=== PATIENT | female | born 1965 | race Caucasian/White ===

== ENCOUNTER 2016-09-30 07:07 | Emergency (ER) | payer BC ==
--- NOTE | 2016-09-30 07:34 | UC ---
General HPI - HPI Summary HPI Summary: The patient comes in today for: 1. "My face is going to explode." Onset: 3 days ago. Palliative/provocative: "uncomfortable with pressure" Quality: Pressure sensation. Region: Left cheek. Severity: 7/10 for uncomfortable sensation, but pain is 3/10 Time: Constant Associated symptoms: Event: "I felt a little something" and brushed it away. She had a "pin prick sensation." It got worse since then--swelling, tender, and hard. Treatment: Triple antibiotic ointment. "udder cream." Fevers: None. Discharge: "very little discharge, blood and clear fluid." LMP: last . * - History of Current Complaint Chief Complaint: Frida Stated Complaint: FACIAL BITE/SWELLING Time Seen by Provider: 09/30/16 07:26 Hx Obtained From: Patient - Allergy/Home Medications Allergies/Adverse Reactions: Allergies Allergy/AdvReac Type Severity Reaction Status Date / Time Amoxicillin [From Augmentin] Allergy Nausea Verified 09/30/16 07:22 Cephalexin [From Keflex] Allergy GI Upset Verified 09/30/16 07:22 Clavulanic Acid Allergy Nausea Verified 09/30/16 07:22 [From Augmentin] Home Medications: Home Medications Sylvia Tabs 1 tab PO DAILY 09/30/16 [History Confirmed 09/30/16] Ranitidine HCl 75 mg PO BID PRN 09/30/16 [History Confirmed 09/30/16] PMH/Surg Hx/FS Hx/Imm Hx Previously Healthy: Yes Endocrine History Of: Denies: Diabetes, Thyroid Disease, Hyperthyroidism, Hypothyroidism, Dyslipidemia Cardiovascular History Of: Denies: Cardiac Disorders, Hypertension, Pacemaker/ICD, Myocardial Infarction , Congestive Heart Failure, Atrial Fibrillation, Deep Vein Thrombosis, Bleeding Disorders Respiratory History Of: Reports: Asthma - allergy induced. Advair for seasonal wheezing. Denies: COPD, Bronchitis, Pneumonia, Pulmonary Embolism GI/ History Of: Denies: Gastroesophageal Reflux, Ulcer, Gastrointestinal Bleed, Gall Bladder Disease, Kidney Stones, Diverticulitis, Renal Disease, Urosepsis Neurological History Of: Denies: TIA, CVA, Dementia, Seizures, Migraine Psychological History Of: Denies: Anxiety, Depression, Bipolar Disorder, Schizophrenia, Post Traumatic Stress Disorder Cancer History Of: Denies: Lung Cancer, Colorectal Cancer, Breast Cancer, Prostate Cancer, Cervical Cancer Other History Of: Negative For: HIV, Hepatitis B, Hepatitis C, Anticoagulant Therapy - Surgical History Surgical History: Yes Surgery Procedure, Year, and Place: right knee - Family History Known Family History: Positive: Cardiac Disease Negative: Hypertension - Social History Occupation: Employed Full-time Alcohol Use: Occasionally Substance Use Type: None Smoking Status (MU): Never Smoked Tobacco Review of Systems Constitutional: Negative Skin: Rash Eyes: Negative ENT: Negative Respiratory: Negative Cardiovascular: Negative Gastrointestinal: Negative All Other Systems Reviewed And Are Negative: Yes Physical Exam Triage Information Reviewed: Yes Appearance: Well-Appearing, No Pain Distress, Well-Nourished Vital Signs: Initial Vital Signs Temp 99.1 F 09/30/16 07:14 Pulse 106 09/30/16 07:14 Resp 24 09/30/16 07:14 Pulse Ox 98 09/30/16 07:14 Patient refuses BP check due to an upcoming nerve studies. Vital Signs Reviewed: Yes Eyes: Positive: Conjunctiva Clear. Negative: Discharge ENT: Positive: Hearing grossly normal. Negative: Pharyngeal erythema, Nasal congestion, Nasal drainage, TM bulging, TM dull, TM red, Tonsillar swelling, Tonsillar exudate Dental: Negative: Gross Decay/Caries @, Dental Fracture @ Neck: Positive: Supple, Nontender, No Lymphadenopathy. Negative: Nuchal Rigidity Respiratory: Positive: Lungs clear, No respiratory distress, No accessory muscle use. Negative: Crackles, Wheezing Cardiovascular: Positive: RRR, No Murmur Abdomen Description: Positive: Nontender, No Organomegaly, Soft. Negative: Distended, Guarding Musculoskeletal: Positive: Strength Intact, ROM Intact Neurological: Positive: Alert, Muscle Tone Normal Psychological: Negative: Age Appropriate Behavior, Consolable Skin: Positive: Other - Left cheek: There is swelling. There is mild tenderness. It is difficult to determine if she has erythema as she has increased makeup on. There is no obvious fluctuance. The size of the induration is about 2 cm. Diagnostics - Laboratory Diagnostic Studies Completed/Ordered: Ultrasound of the left cheek: No cavity, but increased vascularity. Course/Dx - Differential Dx - Multi-Symptom Provider Diagnoses: Facial early abscess/cellulitis, left cheek. Discharge - Discharge Plan Condition: Stable Disposition: HOME Patient Education Materials: Cellulitis (ED), Abscess (ED) Forms: *Work Release Referrals: No Primary Care Phys,NOPCP [Primary Care Provider] - Rafal Avitia MD [Medical Doctor] - 2 Days (Please contact DR. Avitia's office today for an appointment in 2-3 days. ) Additional Instructions: Apply warm compresses to the affected cheek for 20 minutes 4-5 times a day.
--- NOTE | 2016-09-30 08:59 | RAD ---
INDICATION: Left facial swelling COMPARISON: None TECHNIQUE: Transverse and longitudinal scans of the left maxillary were performed utilizing grayscale and color Doppler imaging. FINDINGS: There is diffuse edema and mild hyperemia about the left cheek but no localized fluid collection to suggest abscess formation. IMPRESSION: NO EVIDENCE OF LOCALIZED ABSCESS.
== END 2016-09-30 09:05 | disposition home or self-care (01) ==
LOC: UCCORT 07:07
DX: L02.01 Cutaneous abscess of face (principal); L03.211 Cellulitis of face; Z88.1 Allergy status to other antibiotic agents; J45.909 Unspecified asthma, uncomplicated
CPT/HCPCS: 76536; 99212; G0463

== ENCOUNTER 2018-11-28 20:45 | Emergency (ER) | payer BC ==
--- NOTE | 2018-11-28 21:38 | UC ---
Complaint Female HPI - HPI Summary HPI Summary: 53-year-old female presents with onset of dysuria, frequency, urgency, hematuria today. Denies fever, chills, abdominal pain, back or flank pain, nausea, vomiting, or vaginal discharge. - History Of Current Complaint Chief Complaint: UCGU Stated Complaint: URINARY Time Seen by Provider: 11/28/18 21:19 Hx Obtained From: Patient Hx Last Menstrual Period: 09/26/16 Pain Intensity: 4 - Allergies/Home Medications Allergies/Adverse Reactions: Allergies Allergy/AdvReac Type Severity Reaction Status Date / Time amoxicillin [From Augmentin] AdvReac Nausea Verified 11/28/18 21:17 cephalexin [From Keflex] AdvReac GI Upset Verified 11/28/18 21:17 clavulanic acid AdvReac Nausea Verified 11/28/18 21:17 [From Augmentin] Home Medications: Home Medications Astelin 2 inh BEDTIME 11/28/18 [History Confirmed 11/28/18] PMH/Surg Hx/FS Hx/Imm Hx Previously Healthy: Yes GI/ History: Gastroesophageal Reflux Other History Of: Negative For: HIV, Hepatitis B, Hepatitis C, Anticoagulant Therapy - Surgical History Surgical History: Yes Surgery Procedure, Year, and Place: right knee - Family History Known Family History: Positive: Cardiac Disease Negative: Hypertension - Social History Occupation: Employed Full-time Lives: Alone Alcohol Use: Occasionally Substance Use Type: None Smoking Status (MU): Never Smoked Tobacco Review of Systems All Other Systems Reviewed And Are Negative: Yes Constitutional: Negative: Fever, Chills Respiratory: Positive: Negative Cardiovascular: Positive: Negative Gastrointestinal: Negative: Abdominal Pain, Vomiting, Nausea Genitourinary: Positive: Dysuria, Hematuria, Frequency, Urgency. Negative: Vaginal/Penile Itching, Vaginal/Penile Discharge Musculoskeletal: Positive: Negative Neurological: Positive: Negative Is Patient Immunocompromised?: No Physical Exam - Summary Physical Exam Summary: GENERAL APPEARANCE: Well developed, well nourished, alert and cooperative, and appears to be in no acute distress. CARDIAC: Normal S1 and S2. No S3, S4 or murmurs. Rhythm is regular. There is no peripheral edema, cyanosis or pallor. Extremities are warm and well perfused. Capillary refill is less than 2 seconds. Peripheral pulses intact. LUNGS: Clear to auscultation without rales, rhonchi, wheezing or diminished breath sounds. ABDOMEN: Positive bowel sounds. Soft, nondistended, nontender. No guarding or rebound. No masses or hepatosplenomegally. No CVA tenderness. MUSKULOSKELETAL: ROM intact to all extremities. No joint erythema or tenderness. Normal muscular development. Normal gait. SKIN: Skin normal color, texture and turgor with no lesions or eruptions. Triage Information Reviewed: Yes Vital Signs: Initial Vital Signs Temp 98.7 F 11/28/18 21:12 Pulse 98 11/28/18 21:12 Resp 18 11/28/18 21:12 Pulse Ox 100 11/28/18 21:12 Vital Signs Reviewed: Yes Complaint Female Dx - Course Course Of Treatment: 53-year-old female presents with onset of dysuria, frequency, urgency, hematuria today. Denies fever, chills, abdominal pain, back or flank pain, nausea, vomiting, or vaginal discharge. Afebrile. Vital signs stable. Exam was overall unremarkable. A [id number] urinalysis was not able to be obtained due to the gross hematuria. Urine culture is pending. Will treat empirically for UTI with Bactrim DS 1 tablet twice a day 5 days as well as bright Pyridium 100 mg 3 times a day 2 days for comfort. First doses of these medications were given in the clinic. Patient is to follow-up with her primary care provider in 3-5 days if symptoms do not improve. Anticipatory guidance and warning symptoms were reviewed with the patient. Verbalizes understanding and agrees with plan of care. - Differential Dx/Diagnosis Differential Diagnosis/HQI/PQRI: Ureteral Stone, Urinary Tract Infection Provider Diagnosis: UTI (urinary tract infection) Discharge - Sign-Out/Discharge Documenting (check all that apply): Patient Departure All imaging exams completed and their final reports reviewed: No Studies - Discharge Plan Condition: Stable Disposition: HOME Prescriptions: Phenazopyridine TAB* [Pyridium 100 mg TAB*] 100 mg PO TID #4 tab Sulfamethox/Trimethoprim DS* [Bactrim DS 800/160 TAB*] 1 tab PO BID #8 tab Patient Education Materials: Urinary Tract Infection in Women (ED) Referrals: No Primary Care Phys,NOPCP [Primary Care Provider] - Additional Instructions: We were unable to perform a urine test in the clinic today because of the blood in the urine but your symptoms are suggestive of a urinary tract infection. We will start you on an antibiotic to treat for the infection. We will send a urine culture today to see what bacteria grow out and make sure the antibiotic you were prescribed is appropriate to treat the infection. It will take up to 48 -72 hours to get these results. We will contact you if there is any change in your treatment plan. Start Bactrim DS 1 tab twice a day for 5 days. We gave you the first dose in the clinic. Take Pyridium 1 tablet every 8 hours for next 2 days to help with the discomfort. We gave you the first dose in the clinic. This medication will turn your urine an orange color. Drink plenty of fluids. To help prevent urinary tract infections: 1) Be sure to wipe from front to back. 2) Avoid taking bubble baths. Return here or follow up with your primary care provider in 3-5 days if symptoms persist. Seek immediate medical attention in the emergency room if you develop fever greater than 100.5 F, have severe abdominal pain, persistent vomiting, or any worsening of symptoms. - Billing Disposition and Condition Condition: STABLE Disposition: Home
[2018-11-28] MEDS ORDERED: Phenazopyridine TAB* 100 MG PO ONE (21:44)
[2018-11-28] MEDS ORDERED: Nitrofurantoin Macrocrystals* 50 MG CAP PO ONE (21:44)
[2018-11-28] MEDS ORDERED: Sulfamethox/Trimethoprim DS 800/160* TAB PO ONE (21:54)
== END 2018-11-28 22:04 | disposition home or self-care (01) ==
LOC: UCCORT 20:45
DX: N39.0 Urinary tract infection, site not specified (principal); K21.9 Gastro-esophageal reflux disease without esophagitis
CPT/HCPCS: 87077; 87086; 87186; 99213; A9270-GY; G0463